=== PATIENT | female | born 1960 | race Caucasian/White ===

== ENCOUNTER 2016-04-07 19:14 | Emergency (ER) | payer MEDICAID ==
[2016-04-07] MEDS ORDERED: RANITIDINE 50 MG/2 ML VIAL IVP ONE (19:30)
[2016-04-07] MEDS ORDERED: LORazepam 1 MG TAB PO ONE (19:30)
[2016-04-07] MEDS ORDERED: methylPREDNISolone SOD SUCC 125 MG/2 ML VIAL IVP ONE (19:30)
--- NOTE | 2016-04-07 19:34 | EDPHY ---
H & P Time Seen by Provider: 04/07/16 19:25 HPI/ROS: CHIEF COMPLAINT: Hives for 2 days HISTORY OF PRESENT ILLNESS: This 55-year-old woman has been dealing with urticaria intermittently over the past year. It is every 2 weeks for the past year but she has not had to go to the emergency department in about 3 months. This started to get bad 2 days ago at our diffuse and associated with pain and itching. Not associated with vomiting or abdominal pain, angioedema or wheezing. Not better with Benadryl. REVIEW OF SYSTEMS: Eye: no change in vision ENT: no sore throat Cardiac: no chest pain or syncope Pulmonary: no cough or SOB Abdomen: no vomiting, diarrhea, abdominal pain Musculoskeletal: no back pain Skin: HPI Neuro: no headache Constitutional: no fever : no urinary symptoms A comprehensive 10 point review of systems is otherwise negative aside from elements mentioned in the history of present illness. PAST MEDICAL HISTORY: Includes carpal tunnel, melanoma, hysterectomy, hypertension, appendectomy and . Social history: Negative family history for angioedema or urticaria General Appearance: Alert and conversant, cooperative. Eyes: No scleral icterus. ENT, Mouth: Normal mucous membranes. No angioedema. Respiratory: Normal respiratory effort, breath sounds equal, lungs are clear to auscultation. No wheezing. Cardiovascular: Regular rate and rhythm. Gastrointestinal: Abdomen is soft and non tender. Neurological: Alert and oriented x3. Normally conversant. Face symmetric, normal movement and sensation in all extremities. Skin: Diffuse urticaria including face trunk both upper extremities and not associated with lymphangitis or tenderness. Musculoskeletal: No peripheral edema and no joint swelling. Psychiatric: Not agitated. Emergency Department course/MDM: Epinephrine 0.15 IM, IV Benadryl ranitidine and Solu-Medrol. 2049: Improving, less rash, no respiratory distress. Smoking Status: Never smoked Constitutional: Initial Vital Signs Temperature (C) 36.8 C 04/07/16 19:21 Heart Rate 73 04/07/16 19:21 Respiratory Rate 16 04/07/16 19:21 Blood Pressure 117/78 04/07/16 19:21 O2 Sat (%) 92 04/07/16 19:21 O2 Delivery Mode Room Air Allergies/Adverse Reactions: No Known Allergies Allergy (Unverified 04/07/16 19:19) Home Medications: Medication Instructions Recorded Belbuca 04/07/16 Benadryl 04/07/16 Cogentin 04/07/16 Famotidine [Pepcid] 20 mg PO BID #6 tab 04/07/16 Haldol 5 MG (*) 04/07/16 LISINOPRIL/HYDROCHLOROTHIAZIDE 04/07/16 [PRINZIDE 20-25 MG TABLET] Metoprolol Tartrate [Lopressor 50 50 mg PO 04/07/16 mg (*)] Potassium Chloride 04/07/16 oxyCODONE IR 04/07/16 predniSONE [prednisone 20mg (RX)] 20 mg PO Q12 #15 tab 04/07/16 Medical Decision Making - Data Points Medications Given: Discontinued Medications Diphenhydramine HCl (Benadryl Injection) 50 mg IVP EDNOW ONE Stop: 04/07/16 19:31 Last Admin: 04/07/16 20:17 Dose: 50 mg Epinephrine HCl (Epinephrine) 0.15 mg IM EDNOW ONE Stop: 04/07/16 19:31 Last Admin: 04/07/16 20:09 Dose: 0.15 mg Famotidine (Pepcid) 40 mg IVP EDNOW ONE Stop: 04/07/16 20:06 Last Admin: 04/07/16 20:15 Dose: 40 mg Lorazepam (Ativan) 1 mg PO EDNOW ONE Stop: 04/07/16 19:31 Last Admin: 04/07/16 20:17 Dose: 1 mg Methylprednisolone Sodium Succinate (Solu-Medrol) 125 mg IVP EDNOW ONE Stop: 04/07/16 19:31 Last Admin: 04/07/16 20:10 Dose: 125 mg Ranitidine HCl (Zantac) 50 mg IVP EDNOW ONE Stop: 04/07/16 19:31 Last Admin: 04/07/16 20:12 Dose: Not Given Departure - Departure Disposition: Home, Routine, Self-Care Clinical Impression: Urticaria Condition: Good Instructions: Urticaria (ED) Referrals: dr elena [Other] - As per Instructions (Follow-up this week with your doctor at [facility].) Prescriptions: Famotidine [Pepcid] 20 mg PO BID #6 tab predniSONE [prednisone 20mg (RX)] 20 mg PO Q12 #15 tab
[2016-04-07] MEDS ORDERED: FAMOTIDINE 20 MG/2 ML SDV ONE (20:00)
[2016-04-07] MEDS ORDERED: FAMOTIDINE 20 MG/2 ML SDV IVP ONE (20:05)
[2016-04-07 21:08] VITALS: BP 102/60; PULSE 78; RESP 16; TEMP 98.2; O2SAT 92
== END 2016-04-07 21:44 | disposition home or self-care (01) ==
DX: L50.9 Urticaria, unspecified (principal); I10 Essential (primary) hypertension
CPT/HCPCS: 96374; J0171; J1200; J2780

== ENCOUNTER 2016-09-09 08:01 | Emergency (ER) | payer MEDICAID ==
[2016-09-09] MEDS ORDERED: diphenhydrAMINE 50 MG CAP PO ONE (08:09)
--- NOTE | 2016-09-09 08:09 | EDPHY ---
H & P Time Seen by Provider: 09/09/16 08:08 HPI/ROS: Chief complaint. Hives, difficulty breathing HPI. 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 She has a cough but no fever. She has been compliant with medication. She has had previous workup for her hives and allergic reactions but the etiology is not clear. She has been on her regular medication for long time. No new meds, foods, cleansers or detergents. No chest discomfort. No abdominal pain. She normally takes Benadryl daily but has been out of Benadryl for the past 3 days. ROS Constitutional. no fever/chills, no weakness Eyes. no problems with vision ENT. no sore throat, no nasal drainage Cardiovascular. no chest pain Respiratory. Shortness of breath and cough Abdominal. no abdominal pain, no nausea/vomiting, no diarrhea . no problems urinating MS. no calf pain/swelling, no neck/back pain, no joint pain Skin. Generalized hives Lymph. no swollen glands Neuro. no headache, no dizziness, no difficulty walking or with speech Past Medical/Surgical History: Hives, hypertension Social History: Single, homeless, nonsmoker Smoking Status: Never smoked Physical Exam: General Appearance: Alert well-developed female moderate distress vital signs are stable Eyes: Pupils equal and round no pallor or injection. ENT, pharynx without injection. There is no stridor. Patient is speaking in full sentences Respiratory: There are no retractions, lungs are clear to auscultation. Cardiovascular: Regular rate and rhythm. Gastrointestinal: Abdomen is soft and nontender, no masses, bowel sounds normal. Neurological: Awake and alert, sensory and motor exams grossly normal. Skin: Generalized maculopapular hives Musculoskeletal: Neck is supple nontender. Extremities symmetrical, full range of motion. Psychiatric: Patient is oriented X 3, there is no agitation. Constitutional: Initial Vital Signs Temperature (C) 36.9 C 09/09/16 08:08 Heart Rate 108 H 09/09/16 08:08 Respiratory Rate 16 09/09/16 08:08 Blood Pressure 148/99 H 09/09/16 08:08 O2 Sat (%) 98 09/09/16 08:08 O2 Delivery Mode Room Air Allergies/Adverse Reactions: No Known Allergies Allergy (Unverified 04/07/16 19:19) Home Medications: Medication Instructions Recorded Belbuca 04/07/16 Benadryl 04/07/16 Cogentin 04/07/16 Famotidine [Pepcid] 20 mg PO BID #6 tab 04/07/16 Haldol 5 MG (*) 04/07/16 LISINOPRIL/HYDROCHLOROTHIAZIDE 04/07/16 [PRINZIDE 20-25 MG TABLET] Metoprolol Tartrate [Lopressor 50 50 mg PO 04/07/16 mg (*)] Potassium Chloride 04/07/16 oxyCODONE IR 04/07/16 predniSONE [prednisone 20mg (RX)] 20 mg PO Q12 #15 tab 04/07/16 Medical Decision Making - Diagnostics Imaging Results: Chest x-ray interpreted by me is negative for pneumothorax or pneumonia Procedures: IV normal saline. Benadryl and Pepcid orally. Epinephrine. Solu-Medrol IV ED Course/Re-evaluation: Re-evaluation 9:00 a.m.. Patient is speaking in full sentences. Her hives are improving though not completely gone. She has no stridor. She complains of headache and will be given Tylenol. Re-evaluation again at 9:25 a.m.. Patient is stable. She and I discussed treatment plan including criteria for return importance of follow-up further evaluation. She expresses understanding and agreement Differential Diagnosis: Apparent idiopathic hives. I considered anaphylaxis. She had cough and shortness of breath. I considered pneumonia as well. - Data Points Medications Given: Discontinued Medications Acetaminophen (Tylenol) 1,000 mg PO EDNOW ONE Stop: 09/09/16 09:04 Last Admin: 09/09/16 09:28 Dose: 1,000 mg Diphenhydramine HCl (Benadryl) 50 mg PO EDNOW ONE Stop: 09/09/16 08:12 Last Admin: 09/09/16 08:13 Dose: 50 mg Epinephrine HCl (Epinephrine) 0.3 mg IM EDNOW ONE Stop: 09/09/16 08:17 Last Admin: 09/09/16 08:34 Dose: 0.3 mg Methylprednisolone Sodium Succinate (Solu-Medrol) 125 mg IVP EDNOW ONE Stop: 09/09/16 08:17 Last Admin: 09/09/16 08:33 Dose: 125 mg Ranitidine HCl (Zantac) 50 mg IVP EDNOW ONE Stop: 09/09/16 08:17 Last Admin: 09/09/16 08:35 Dose: 50 mg Departure - Departure Disposition: Home, Routine, Self-Care Clinical Impression: Urticaria Condition: Good Instructions: Urticaria (ED) Additional Instructions: continue Benadryl and hydroxyzine. return for worsening symptoms. re-check in 1-2 days if not improving. Referrals: NONE *PRIMARY CARE P,. [Primary Care Provider] - As per Instructions [facility] [Outside] - 2-3 days, call for appt.
[2016-09-09 08:10] VITALS: BP 148/99; PULSE 108; RESP 16; TEMP 98.4; O2SAT 98
[2016-09-09] MEDS ORDERED: diphenhydrAMINE 25 MG CAP PO ONE (08:11)
[2016-09-09] MEDS ORDERED: RANITIDINE 50 MG/2 ML VIAL IVP ONE (08:16)
[2016-09-09] MEDS ORDERED: methylPREDNISolone SOD SUCC 125 MG/2 ML VIAL IVP ONE (08:16)
[2016-09-09] MEDS ORDERED: ACETAMINOPHEN 500 MG TAB PO ONE (09:03)
== END 2016-09-09 09:47 | disposition home or self-care (01) ==
DX: L50.9 Urticaria, unspecified (principal)
CPT/HCPCS: 96374; J0171; J2780